=== PATIENT | male | born 1980 | race Caucasian/White ===

== ENCOUNTER 2018-06-07 05:36 | Inpatient (IN) | payer OTHER ==
[~2018-06-07] VITALS: Ht 167.6 cm; Wt 59.5 kg
--- NOTE | ~2018-06-07 | H ---
[facility] [place] [address] HISTORY AND PHYSICAL Name: FRANK LATHAM Room #: 458-P [facility] IN M.R.#: [id number] Admission: 06/07/18 Attend Phys: Troy Gregg Discharge: 06/11/18 Date of : 80 Report #: [id number] THIS REPORT FOR: //name// CC: Troy Nelsonu Sabih DATE OF SERVICE: 06/07/2018 ATTENDING PHYSICIAN: Dr. Troy Alexis. CHIEF COMPLAINT: Multiple decubitus ulcers, nonhealing wounds and quadriplegia. HISTORY OF PRESENT ILLNESS: The patient is a 37-year-old gentleman with known history of incomplete quadriplegia. The patient was having bilateral ischial tuberosity, decubitus ulcers and persistent fecal contamination. The wounds were nonhealing because of fecal contamination and the patient was admitted for a diverting colostomy. The patient underwent the surgery yesterday and has now been admitted for further care. PAST MEDICAL HISTORY: Significant for history of the multiple decubitus wounds, nonhealing and incomplete quadriplegia. ALLERGIES: He is known to be allergic to NITROFURANTOIN, SULFAMETHOXAZOLE, TRIAMTERENE and VANCOMYCIN. CURRENT MEDICATIONS: Aspirin, baclofen, cefepime, vitamin D3, Lovenox, Amitiza, multivitamin and oxycodone IR. REVIEW OF SYSTEMS: The patient did complain of having some low abdominal pain. Denied having any nausea, vomiting or breathing difficulty. PHYSICAL EXAMINATION: GENERAL: Young gentleman was resting in bed, did not appear to be in distress. He was awake, alert to place and person. VITAL SIGNS: He was afebrile, temperature 37.6, pulse of 60, respiratory rate 20, blood pressure was 90/49, oxygen saturation 98% on room air. HEENT: Skull was atraumatic. There was mild pallor, no icterus. Mucosa was moist. EXTREMITIES: The patient had quadriplegia and multiple decubitus ulcers, which were nonhealing. ABDOMEN: Soft. The patient had the diverting colostomy, which is functioning well. It was nontender. Bowel sounds normally heard. LUNGS: Clear to auscultation bilaterally. HEART: Revealed first and second heart sound, which was normal. ASSESSMENT: [address] [address] HISTORY AND PHYSICAL Name: FRANK LATHAM Room #: 458-P [facility] IN M.R.#: [id number] Admission: 06/07/18 Attend Phys: Troy Gregg Discharge: 06/11/18 Date of : 80 Report #: [id number] 1. Diverting colostomy. 2. Multiple decubitus ulcers. 3. Incomplete quadriplegia. PLAN: To continue with his medications and plans as per the surgeon. <ELECTRONICALLY SIGNED> By: Leticia Nowak MD 06/13/18 [id number] Leticia Nowak MD /ani
[~2018-06-07 05:36] MED LIST: AMITIZA8 MCG PO; ASPIR 8181 MG PO; CEFEPIME 22 GM/100 M IV; DAKIN'S473 M2 TOP; ENOXAPARIN40 MG/0.1 SUBQ; LIORESAL 10 MG10 MG PO; MULTIVITAMINS PO; OXYCODONE HCL 55 MG PO; PROSOURCE PLUS30 ML PO; VITAMIN D3400 UNI2 PO
[2018-06-07 09:26] VITALS: BP 97/54
[2018-06-07 19:44] VITALS: BP 97/54
[2018-06-08 04:02] VITALS: BP 90/49
[2018-06-08 08:03] VITALS: BP 89/51
[2018-06-08 15:37] VITALS: BP 103/56
[2018-06-08 19:32] VITALS: BP 123/84
[2018-06-08 23:27] VITALS: BP 123/84
[2018-06-09 03:30] VITALS: BP 111/66
[2018-06-09 07:39] VITALS: BP 91/49
[2018-06-09 16:30] VITALS: BP 109/69
[2018-06-09 20:07] VITALS: BP 91/50
[2018-06-09 22:24] VITALS: BP 91/50
[2018-06-10 05:06] VITALS: BP 100/58
[2018-06-10 08:00] VITALS: BP 104/60
[2018-06-10 15:30] VITALS: BP 89/45
[2018-06-10 19:26] VITALS: BP 104/59
[2018-06-11 03:20] VITALS: BP 120/69
[2018-06-11 06:11] LABS: HEMATOCRIT 36.4 % (42.0-52.0); HEMOGLOBIN 12.2 gm/dL (14.0-18.0); MCH 30.6 pg (26.0-34.0); MCHC 33.7 g/dL (28.0-37.0); MCV 90.9 fL (80.0-100.0); RDW 14.7 % (10.5-14.5); WBC 6.4 thou/uL (4.0-11.0)
[2018-06-11 06:24] LABS: CALCIUM 9.2 mg/dL (8.5-10.1); CREATININE 0.4 mg/dL (0.7-1.3); POTASSIUM 4.1 mmol/L (3.5-5.1)
[2018-06-11] MEDS ORDERED: MIRALAX17 GM PO (09:57)
== END 2018-06-11 17:01 | DRG 981 ==
LOC: OR 05:36 → TBA 05:37 → OR 10:30 → 4W 12:03 → OR 12:05 → 4W 13:39 → OR 14:14 → 4W 06-11 17:01
PROVIDERS: Internal Medicine Geriatric Medicine
PROC: 0D1L0Z4 Bypass Transverse Colon to Cutaneous, Open Approach (ICD-10-PCS; principal; 2018-06-07)
DX: L89.224 Pressure ulcer of left hip, stage 4 (principal); E43 Unspecified severe protein-calorie malnutrition; G82.50 Quadriplegia, unspecified; L89.214 Pressure ulcer of right hip, stage 4; Z68.21 Body mass index [BMI] 21.0-21.9, adult; Z79.82 Long term (current) use of aspirin; Z79.899 Other long term (current) drug therapy; Z88.1 Allergy status to other antibiotic agents; Z88.2 Allergy status to sulfonamides; Z88.8 Allergy status to other drugs, medicaments and biological substances
CPT/HCPCS: 10047; 50010; 50101; 50386; 50445; 56524; 57092; 62110; 62900; 70005